=== PATIENT | female | born 1970 | race African-American/Black ===

== ENCOUNTER 2021-05-24 16:29 | Emergency (ER) | payer OTHER ==
[~2021-05-24] VITALS: Ht 175.3 cm; Wt 81.7 kg
[2021-05-24 17:10] LABS: ABSOLUTE NEUTROPHILS 2.5 thou/uL (1.4-8.2); BASOPHILS 0.5 % (0.0-2.0); EOSINOPHILS 0.8 % (0.0-3.0); HEMATOCRIT 38.9 % (37.0-47.0); HEMOGLOBIN 12.7 gm/dL (12.0-15.0); LYMPHOCYTES 34.2 % (24.0-44.0); MCH 28.3 pg (26.0-34.0); MCHC 32.7 g/dL (28.0-37.0); MCV 86.7 fL (80.0-100.0); MONOCYTES 7.6 % (1.0-8.0); PLATELET COUNT 219 thou/uL (150-400); POLYS 56.9 % (36.0-66.0); RBC 4.48 mil/uL (4.20-5.00); RDW 12.8 % (10.5-14.5); WBC 4.4 thou/uL (4.0-11.0)
[2021-05-24 17:18] LABS: ANION GAP 11 mmol/L (7-16); BUN 10 mg/dL (7-18); CALCIUM 8.7 mg/dL (8.5-10.1); CHLORIDE 105 mmol/L (98-107); CO2 25 mmol/L (21-32); CREATININE 0.8 mg/dL (0.6-1.0); GLUCOSE 74 mg/dL (74-106); POTASSIUM 3.6 mmol/L (3.5-5.1); SODIUM 141 mmol/L (136-145)
[2021-05-24 17:28] LABS: ALBUMIN 3.5 g/dL (3.4-5.0); LIPASE 174 U/L (73-393); SGOT 17 U/L (15-37); SGPT 15 U/L (30-65); TOTAL BILIRUBIN 0.3 mg/dL (0.2-1.0); TOTAL PROTEIN 7.8 g/dL (6.4-8.2); TROPONIN-I <0.06 ng/mL (<0.06)
[2021-05-24] MEDS ORDERED: ZOFRAN ODT4 MG PO (20:43)
[2021-05-24 21:13] VITALS: BP 106/69
--- NOTE | 2021-05-25 07:18 | EKG ---
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[id number] Requested By: Narciso Liu Order Number: [id number] MD: Kevin Pierre Measurements Intervals Mcandrews Rate: 100 P: 79 DC: 157 QRS: 78 QRSD: 86 T: 2 QT: 339 QTc: 438 Interpretive Statements Sinus tachycardia Biatrial enlargement Borderline repolarization abnormality No previous ECG available for comparison Electronically Signed On 05-25-2021 7:18:08 CDT by Kevin Pierre [email or web address] <ELECTRONICALLY SIGNED> By: Kevin Pierre MD, [facility] 05/25/21 0718 1635 1635 Kevin Pierre MD, FACC /EPI
== END 2021-05-24 21:35 | disposition home or self-care (01) ==
LOC: ER 16:29
PROVIDERS: Emergency Medicine
DX: U07.1 COVID-19 (principal); R07.89 Other chest pain; R10.13 Epigastric pain; G43.909 Migraine, unspecified, not intractable, without status migrainosus; Z88.6 Allergy status to analgesic agent